=== PATIENT | female | born 1950 | race Caucasian/White ===

== ENCOUNTER → 2018-05-01 | Outpatient (CLI) | payer OTHER | LOC: HYPER 06:59 | DX: L97.822 Non-pressure chronic ulcer of other part of left lower leg with fat layer exposed (principal); E78.5 Hyperlipidemia, unspecified; G43.909 Migraine, unspecified, not intractable, without status migrainosus; R60.0 Localized edema; Z90.710 Acquired absence of both cervix and uterus; Z87.891 Personal history of nicotine dependence ==

== ENCOUNTER → 2018-05-08 | Outpatient (CLI) | payer OTHER | LOC: HYPER 06:33 | DX: L97.822 Non-pressure chronic ulcer of other part of left lower leg with fat layer exposed (principal); S91.002D Unspecified open wound, left ankle, subsequent encounter; E78.5 Hyperlipidemia, unspecified; G43.909 Migraine, unspecified, not intractable, without status migrainosus; F41.9 Anxiety disorder, unspecified; Z87.891 Personal history of nicotine dependence; X58.XXXD Exposure to other specified factors, subsequent encounter ==

== ENCOUNTER → 2018-05-22 | Outpatient (CLI) | payer OTHER | LOC: HYPER 06:54 | DX: L97.322 Non-pressure chronic ulcer of left ankle with fat layer exposed (principal); S91.002D Unspecified open wound, left ankle, subsequent encounter; E78.5 Hyperlipidemia, unspecified; G43.909 Migraine, unspecified, not intractable, without status migrainosus; F41.9 Anxiety disorder, unspecified; Z87.891 Personal history of nicotine dependence; X58.XXXD Exposure to other specified factors, subsequent encounter ==

== ENCOUNTER → 2018-06-17 | Outpatient (CLI) | payer OTHER | LOC: HYPER 06:33 | DX: L97.322 Non-pressure chronic ulcer of left ankle with fat layer exposed (principal); E78.5 Hyperlipidemia, unspecified; G40.909 Epilepsy, unspecified, not intractable, without status epilepticus; M85.88 Other specified disorders of bone density and structure, other site; F41.9 Anxiety disorder, unspecified; Z87.891 Personal history of nicotine dependence ==

== ENCOUNTER → 2018-07-03 | Outpatient (CLI) | payer OTHER | LOC: HYPER 07:18 | DX: L97.322 Non-pressure chronic ulcer of left ankle with fat layer exposed (principal); E78.5 Hyperlipidemia, unspecified; G43.909 Migraine, unspecified, not intractable, without status migrainosus; M85.88 Other specified disorders of bone density and structure, other site; F41.9 Anxiety disorder, unspecified; Z87.891 Personal history of nicotine dependence ==